=== PATIENT | male | born 1995 | race Caucasian/White ===

== ENCOUNTER 2018-09-03 21:27 | Emergency (ER) | payer OTHER ==
[2018-09-03 21:35] VITALS: BP 117/77
[2018-09-03] MEDS ORDERED: LIDOCAINE 2%-EPI 1:100000 20 ML MDV SUBQ STA (21:40)
--- NOTE | 2018-09-03 21:43 | ED Physician Documentation ---
PD HPI UPPER EXT INJURY - Stated complaint Stated Complaint: RT WRIST LAC INJ - Chief complaint Chief Complaint: Laceration - History obtained from History obtained from: Patient, Family - History of Present Illness Location: Right, Wrist Type of injury: Laceration (glass table broke) Where injury occurred: Home Timing - onset: How many minutes ago (30) Timing - duration: Minutes (30) Timing - details: Abrupt onset Pain level max: 5 Pain level now: 3 Improved by: Rest, Ice, Immobilization Worsened by: Moving, Palpating Associated symptoms: Numbness (slight to 5th digit and medial palm). No: Weakness, Tingling, Swelling, Discolored Contributing factors: No: Anticoagulated, Prior ortho surgery - Additonal information Additional information: Pt is right handed. Td UTD Review of Systems Constitutional: denies: Fever, Chills Neurologic: denies: Focal weakness PD PAST MEDICAL HISTORY - Past Medical History Past Medical History: No - Past Surgical History Past Surgical History: No - Allergies Allergies/Adverse Reactions: Allergies Allergy/AdvReac Type Severity Reaction Status Date / Time No Known Drug Allergies Allergy Verified 09/03/18 21:35 - Social History Does the pt have substance abuse?: No - Family History Family history: reports: Non contributory - Immunizations Immunizations are current?: Yes Immunizations: TDAP current <10years PD ED PE NORMAL - Vitals Vital signs reviewed: Yes - General General: Alert and oriented X 3, No acute distress - HEENT HEENT: Moist mucous membranes - Derm Derm: Warm and dry - Extremities Extremities: Other (R hand/wrist - 4 cm laceration to the volar aspect of the right wrist, extends towards the medial part of the arm. Neurovascularly intact other than a slight numbness to the left fifth digit and the medial aspect of the palm. Tendons intact. Tested against resistance.) - Neuro Neuro: Alert and oriented X 3 Results - Vitals Vitals: Vital Signs - 24 hr 09/03/18 21:30 Temperature 36.9 C Heart Rate 97 Respiratory 16 Rate Blood Pressure 117/77 O2 Saturation 96 Oxygen O2 Source Room air Procedures - Laceration (location) Right wrist Length in cm: 4 Wound type: Linear, Into subcut fat, Clean Neurovascular status: Motor intact, Vascular intact, Other (Decreased sensation over the right fifth digit and medial aspect of the palm) Anesthesia: Lidocaine 2% with epi Wound Preparation: Irrigated copiously NS, Wound explored, To the base. No: FB identified, FB removed Skin layer closure: Nylon, Interrupted, Size #-0 - enter number (4) Other: Patient tolerated well, No complications, Neurovascular intact, Dressing applied, Tetanus UTD Complexity: Simple PD MEDICAL DECISION MAKING - ED course Complexity details: considered differential, d/w patient ED course: Laceration repaired. Tolerated well. Patient is right-handed. Does have a slight numbness to the medial aspect of the hand and the fifth digit. Warnings of infection and instructions on wound care given at bedside. Also counseled on how to minimize scarring. Patient counseled regarding signs and symptoms for which I believe and urgent re-evaluation would be necessary. Patient with good understanding of and agreement to plan and is comfortable going home at this time This document was made in part using voice recognition software. While efforts are made to proofread this document, sound alike and grammatical errors may occur. Departure - Departure Disposition: 01 Home, Self Care Clinical Impression: Laceration of right wrist Qualifiers: Encounter type: initial encounter Qualified Code(s): S61.511A - Laceration without foreign body of right wrist, initial encounter Condition: Good Instructions: ED Laceration All Follow-Up: your,doctor in 10-14 days for suture removal. [Other] Comments: Keep the wound clean. Return if you worsen. Return if you notice swelling, drainage or redness from the wound. The stitches will need to be removed in 10- 14 days with your doctor
[2018-09-03] MEDS ORDERED: BACITRACIN OINT TOP STA (22:04)
== END 2018-09-03 22:15 | disposition home or self-care (01) ==
LOC: ED 21:27
DX: S61.511A Laceration without foreign body of right wrist, initial encounter (principal); W25.XXXA Contact with sharp glass, initial encounter; Y93.89 Activity, other specified; Y92.009 Unspecified place in unspecified non-institutional (private) residence as the place of occurrence of the external cause
CPT/HCPCS: 12002; 99282; 99283; A9270

== ENCOUNTER 2023-07-28 16:24 | Emergency (ER) | payer OTHER ==
[2023-07-28 16:39] VITALS: BP 138/76; O2SAT 98
--- NOTE | 2023-07-28 17:04 | ED Physician Documentation ---
PD HPI UPPER EXT INJURY - Stated complaint Stated Complaint: LT HAND LAC - Chief complaint Chief Complaint: Laceration - History obtained from History obtained from: Patient - History of Present Illness Location: Left, Finger (index finger radial side at PIP.) Type of injury: Laceration (on sharp metal edge while lifting object.) Where injury occurred: Work Timing - onset: Today Timing - details: Abrupt onset (bled briskly initially, stopped with direct pressure.) Worsened by: Moving Associated symptoms: No: Weakness, Numbness Similar symptoms before: Has not had sx before Review of Systems Neurologic: denies: Focal weakness, Numbness PD PAST MEDICAL HISTORY - Past Medical History Past Medical History: No Cardiovascular: None Respiratory: None Neuro: None Endocrine/Autoimmune: None GI: None : None HEENT: None Psych: None Musculoskeletal: None Derm: None - Past Surgical History Past Surgical History: No - Present Medications Home Medications: Ambulatory Orders Medication Instructions Recorded Confirmed No Known Home Medications 07/28/23 07/28/23 - Allergies Allergies/Adverse Reactions: Allergies Allergy/AdvReac Type Severity Reaction Status Date / Time No Known Drug Allergies Allergy Verified 07/28/23 16:29 - Social History Does the pt smoke?: No Smoking Status: Never smoker Does the pt drink ETOH?: Yes Does the pt have substance abuse?: No - Immunizations Immunizations are current?: Yes Immunizations: TDAP current <10years - POLST Patient has POLST: No PD ED PE NORMAL - Vitals Vital signs reviewed: Yes - General General: Alert and oriented X 3, No acute distress, Well developed/nourished - Derm Derm: Normal color, Warm and dry - Extremities Extremities: Other (left index finger raidal side at POP joint with horizontal lac 1 cm to fatty tissue but with some steady bleeding without pressure applied. normal movement against resistance. ) - Neuro Neuro: No motor deficit, No sensory deficit Results - Vitals Vitals: Oxygen O2 Source Room air Procedures - Laceration (location) left index finger Length in cm: 1 Wound type: Linear, Into subcut fat, Clean Neurovascular status: Sensory intact, Motor intact, Vascular intact Tendon involvement: Tendon intact Anesthesia: Lidocaine 1% with epi Wound preparation: Wound explored, To the base, Other (cleansed with tap water.) Skin layer closure: Nylon, Interrupted, Size #-0 - enter number (4), Sutures - enter # (5) Other: Patient tolerated well, No complications, Neurovascular intact, Dressing applied, Tetanus UTD PD Medical Decision Making - ED course Complexity details: considered differential (lac of finger at joint, with still bleeding and opens with flexion, so not amenable to tape/glue. Sutured without problems. No tendon, nerve involvement. ), d/w patient Departure - Departure Disposition: 01 Home, Self Care Clinical Impression: Finger laceration Condition: Stable Record reviewed to determine appropriate education?: Yes Instructions: ED Laceration Hand Follow-Up: KRANTHI eHller [Provider Group] Comments: It is okay to wash and shower. Clean off the wound twice a day with soap and water, or peroxide and water. Apply some antibiotic ointment to it to keep it moist. Also to watch for signs of infection such as purulence, redness or increasing pain. Return to your primary care or the ER at the specified time for suture removal. Suture removal 8 to 10 days. Tylenol or ibuprofen if needed for pains. Start off with barrel washer activity with the finger for a day or 2 but then resume fairly normal use so it heals with supple scarring and not tight. Forms: PCP List Discharge Date/Time: 07/28/23 17:34
== END 2023-07-28 17:34 | disposition home or self-care (01) ==
LOC: ED 16:24
DX: S61.211A Laceration without foreign body of left index finger without damage to nail, initial encounter (principal); W45.8XXA Other foreign body or object entering through skin, initial encounter; Y99.0 Civilian activity done for income or pay
CPT/HCPCS: 12001; 99282